=== PATIENT | male | born 1975 | race Caucasian/White ===

== ENCOUNTER 2018-02-24 00:47 | Emergency (ER) | payer SELFPAY ==
[~2018-02-24] VITALS: Ht 175.3 cm; Wt 75.0 kg
[~2018-02-24 00:47] MED LIST: AC325T PO; ALBU17AE23 IH; ALBU17AE3 IH; ALBU8.5HRX IH; ASP81CT PO; BPR150TCR PO; BSP5T PO; CIPR500T4 PO; DOXY100C2 PO; FLT05NA16; GABA300C PO; HYDR-2890 PO; HYDR12.570 PO; HYDR25CA5 PO; HYDR50TA76 PO; Ibuprofen PO; LEVO750T24 PO; METH4TAB PO; NAPR-243 PO; NAPR250T2 PO; OMEG-12 PO; OSLT75C PO; OXYC-188 PO; RABE20TA PO; SULF1TAB38 PO
[2018-02-24] MEDS ORDERED: NS IV 1000 ML 1,000 ML IV SCH (01:18)
--- NOTE | 2018-02-24 01:26 | ED Chest Pain ---
General Stated Complaint: NECK,ARM PAIN Source: patient Exam Limitations: no limitations History of Present Illness Date Seen by Provider: Feb 24, 2018 Time Seen by Provider: 01:14 Initial Comments Patient presents to ER by private conveyance with chief complaint of some left shoulder pain is been intermittent for the past 2 weeks. He does not recall doing any overuse injuries he does work on cars for living. He is right-handed by nature. He is not having any radiation of his pain but he does have numbness and tingling goes down into his fingertips. He says that he does not have a history of trauma or neck injuries or neck pain. He is not having any fevers chills but he does have a productive cough. He does have a history of primary family with early onset coronary disease in their 40s. He denies using any recreational drugs. He says he used to take a lot of pills but he stopped all that years ago and has been for the past few months using a herbal supplement 3- 4 tablets every 4 hours as needed to help with the craving. Called Hieu. Recently he's also been having a lot of nasal congestion and allergy so he's been using an off brand version of nasal Gordo-Synephrine as well as Sudafed and some naiw-buk-snllici nasal decongestants. Allergies and Home Medications Allergies Coded Allergies: No Known Drug Allergies (Unverified , 05/09/10) Home Medications Acetaminophen 325 Mg Tab, 650 MG PO Q4H PRN for FEVER > 100.5 Prescribed by: BIGG RAJAN on 01/31/1453 Ciprofloxacin 500 Mg Tab, 500 MG PO BID Prescribed by: BIGG RAJAN on 01/31/14 0953 [Ibuprofen] 800 MG TAB, 800 MG PO Q8H PRN for FEVER >100.5 Prescribed by: BIGG RAJAN on 01/31/14 0953 Patient Home Medication List Home Medication List Reviewed: Yes Review of Systems Review of Systems Constitutional: No chills, No fever; malaise EENTM: No Blurred Vision, No Double Vision Respiratory: Cough; Denies Shortness of Air Cardiovascular: See HPI; Denies Chest Pain, Denies Edema Gastrointestinal: Denies Abdomen Distended, Denies Abdominal Pain Genitourinary: Denies Burning, Denies Discharge Musculoskeletal: No back pain; joint pain (left shoulder), neck pain Past Ghstfei-Xrspwf-Qcmhvc Hx Patient Social History Alcohol Use: Denies Use Recreational Drug Use: No Drug of Choice: history of opiates Smoking Status: Current Everyday Smoker Type Used: Cigarettes (0.5 ppd) Recent Foreign Travel: No Contact w/Someone Who Travel: No Immunizations Up To Date Date of Influenza Vaccine: Jun 07, 2013 Past Medical History Anxiety Family Medical History Patient reports no known family medical history. Physical Exam Vital Signs Capillary Refill : Height, Weight, BMI Height: 5'9.00" Weight: 165lbs. 5.0oz. 74.205585aw; BMI Method:Stated General Appearance: No Apparent Distress, WD/WN, Anxious HEENT: PERRL/EOMI, Normal ENT Inspection, Pharynx Normal, Moist Mucous Membranes Neck: Full Range of Motion, Normal Inspection, Non Tender, Supple Respiratory: Chest Non Tender, No Accessory Muscle Use, No Respiratory Distress , Rales (few bilateral lower lobes) Cardiovascular: Regular Rate, Rhythm, No Edema, Normal Peripheral Pulses Gastrointestinal: Normal Bowel Sounds, Non Tender, Soft Extremity: Normal Capillary Refill, Normal Inspection, Normal Range of Motion; No Non Tender; No Pedal Edema, Other (tenderness to palpation over the trapezius on the left side especially with passive and active abduction. Neck nontender palpation) Neurologic/Psychiatric: Alert, Oriented x3, No Motor/Sensory Deficits Skin: Normal Color, Warm/Dry Progress/Results/Core Measures Results/Orders Lab Results Laboratory Tests Test 02/24/18 01:38 Range/Units White Blood Count 7.5 4.3-11.0 10^3/uL Red Blood Count 4.03 L 4.35-5.85 10^6/uL Hemoglobin 12.9 L 13.3-17.7 G/DL Hematocrit 37 L 40-54 % Mean Corpuscular Volume 91 80-99 FL Mean Corpuscular Hemoglobin 32 25-34 PG Mean Corpuscular Hemoglobin Concent 35 32-36 G/DL Red Cell Distribution Width 13.0 10.0-14.5 % Platelet Count 434 H 130-400 10^3/uL Mean Platelet Volume 9.2 7.4-10.4 FL Neutrophils (%) (Auto) 54 42-75 % Lymphocytes (%) (Auto) 35 12-44 % Monocytes (%) (Auto) 9 0-12 % Eosinophils (%) (Auto) 2 0-10 % Basophils (%) (Auto) 1 0-10 % Neutrophils # (Auto) 4.0 1.8-7.8 X 10^3 Lymphocytes # (Auto) 2.6 1.0-4.0 X 10^3 Monocytes # (Auto) 0.6 0.0-1.0 X 10^3 Eosinophils # (Auto) 0.2 0.0-0.3 10^3/uL Basophils # (Auto) 0.1 0.0-0.1 10^3/uL Prothrombin Time 12.2 12.2-14.7 SEC INR Comment 0.9 0.8-1.4 Activated Partial Thromboplast Time 35 24-35 SEC Sodium Level 140 135-145 MMOL/L Potassium Level 3.8 3.6-5.0 MMOL/L Chloride Level 106 98-107 MMOL/L Carbon Dioxide Level 23 21-32 MMOL/L Anion Gap 11 5-14 MMOL/L Blood Urea Nitrogen 17 7-18 MG/DL Creatinine 0.87 0.60-1.30 MG/DL Estimat Glomerular Filtration Rate > 60 BUN/Creatinine Ratio 20 Glucose Level 104 70-105 MG/DL Calcium Level 9.5 8.5-10.1 MG/DL Corrected Calcium 9.1 8.5-10.1 MG/DL Magnesium Level 2.2 1.8-2.4 MG/DL Total Bilirubin 0.3 0.1-1.0 MG/DL Aspartate Amino Transf (AST/SGOT) 31 5-34 U/L Alanine Aminotransferase (ALT/SGPT) 41 0-55 U/L Alkaline Phosphatase 71 40-136 U/L Myoglobin 37.8 10.0-92.0 NG/ML Troponin I < 0.30 <0.30 NG/ML Total Protein 7.5 6.4-8.2 GM/DL Albumin 4.5 3.2-4.5 GM/DL My Orders Orders - CRISTY MOSHER Cbc With Automated Diff (02/24/18:18) Magnesium (02/24/18:18) Ekg Tracing (02/24/18:18) Cardiac Profile 1 (02/24/18:18) Comprehensive Metabolic Panel (02/24/18:18) Myoglobin Serum (02/24/18:18) Protime With Inr (02/24/18:18) Partial Thromboplastin Time (02/24/18:18) O2 (02/24/18:18) Monitor-Rhythm Ecg Trace Only (02/24/18:18) Saline Lock/Iv-Start (02/24/18:18) Chest Pa/Lat (2 View) (02/24/18:18) Saline Lock/Iv-Start (02/24/18:18) Ns Iv 1000 Ml (Sodium Chloride 0.9%) (02/24/18:18) Drug Screen Stat (Urine) (02/24/18:18) Progress Progress Note #1: Time: :26 Progress Note ED ACS 17 points. Low risk by the EDACS Score. If the patient also has: (1) EKG without new ischemic changes and (2) negative initial and 2-hour troponins, then this patient is safe for discharge to early outpatient follow-up investigation (or proceed to earlier inpatient testing). If EKG with ischemic changes or positive troponin, they are not low risk and require normal risk stratification. Is pains been going on for the last 2 weeks if it was cardiac in nature we'll see if the troponin. EKG shows sinus tachycardia as well as telemetry. Could be explained by his recent use of Sudafed, phenylephrine, so Gordo-Synephrine etc. Were going to give him a liter fluids since she does appear dry all he waits for some basic labs to include troponin and myoglobin. We'll get a chest x-ray as well since he's having a productive cough. Tachycardia but no acute respiratory distress. He does have some mild basilar crackles bilateral. Progress Note #2: Time: 03:05 Progress Note The patient's feeling better. He has declined to provide a urine. There is no elevation in his troponin or changes in EKG and his heart rates down in the 80s now after some IV fluids. I feel that this shoulder pain is most likely from either a pinched nerve in the neck or some musculoskeletal reasonable to put him on NSAIDs. He has follow-up appointment with his primary care doctor we've also encouraged him to slowly wean off of the supplement and follow-up with the outpatient addiction treatment Center at the [facility] for management. Initial ECG Impression Date: Feb 24, 2018 Initial ECG Impression Time: 01:06 Initial ECG Rate: 114 Initial ECG Rhythm: S.Tach Initial ECG Intervals: Normal Initial ECG Impression: Nonspecific Changes Initial ECG Comparisson: No Previous ECG Available Comment Sinus tachycardia without ST elevation or depression. Diagnostic Imaging Diagonstic Imaging: Xray Plain Films/CT/US/NM/MRI: chest (2v) Reviewed: Reviewed by Me Departure Impression Primary Impression: Cervical radiculopathy Additional Impressions: Shoulder pain, left Qualified Codes: M25.512 - Pain in left shoulder Medication side effect Disposition: HOME, SELF-CARE Condition: Improved Departure-Patient Inst. Decision time for Depature: 03:08 Referrals: [facility] (PCP/Family) Primary Care Physician Patient Instructions: Shoulder Pain (DC) Add. Discharge Instructions: Ice for 20 minutes every 4 hours while awake on your left shoulder and neck. You can use heat in between then or icy hot. Use Tylenol 1000 mg as needed every 8 hours for pain. On a schedule start taking 800 mg ibuprofen 3 times a day for the next 2 weeks. For 2 weeks do not lift more than 20 pounds with your left shoulder. Follow-up with primary care if you're not seeing some improvement in the next 2 weeks. Scripts Ibuprofen (Ibuprofen) 800 Mg Tablet 800 MG PO Q8H PRN for PAIN for 14 Days, #42 TAB 0 Refills Prov: CRISTY MOSHER 02/24/18 Work/School Note: Work Release Form Date Seen in the Emergency Department: Feb 24, 2018 Return to Work: Feb 24, 2018 Restrictions: Need Release from Doctor Other Restrictions Listed Below: No lift more than 20# left arm until . Copy Copies To 1: NATHALIA HALE TITUS J Feb 24, 2018 01:26
[2018-02-24 01:46] LABS: BASOPHILS # (AUTO) 0.1 10^3/uL (0.0-0.1); BASOPHILS % (AUTO) 1 % (0-10); EOSINOPHILS # (AUTO) 0.2 10^3/uL (0.0-0.3); EOSINOPHILS % (AUTO) 2 % (0-10); HEMATOCRIT 37 % (40-54); HEMOGLOBIN 12.9 G/DL (13.3-17.7); LYMPHOCYTES # (AUTO) 2.6 X 10^3 (1.0-4.0); LYMPHOCYTES % (AUTO) 35 % (12-44); MEAN CORPUSCULAR HEMOGLOBIN 32 PG (25-34); MEAN CORPUSCULAR HGB CONC 35 G/DL (32-36); MEAN CORPUSCULAR VOLUME 91 FL (80-99); MEAN PLATELET VOLUME 9.2 FL (7.4-10.4); MONOCYTES # (AUTO) 0.6 X 10^3 (0.0-1.0); MONOCYTES % (AUTO) 9 % (0-12); NEUTROPHILS % (AUTO) 54 % (42-75); PLATELET COUNT 434 10^3/uL (130-400); RED BLOOD COUNT 4.03 10^6/uL (4.35-5.85); WHITE BLOOD COUNT 7.5 10^3/uL (4.3-11.0)
[2018-02-24 01:57] LABS: INR 0.9 (0.8-1.4); PROTHROMBIN TIME PATIENT 12.2 SEC (12.2-14.7)
[2018-02-24 02:04] LABS: ALANINE AMINOTRANSFERASE 41 U/L (0-55); ALBUMIN 4.5 GM/DL (3.2-4.5); ALKALINE PHOSPHATASE 71 U/L (40-136); BILIRUBIN,TOTAL 0.3 MG/DL (0.1-1.0); BUN/CREATININE RATIO 20; CALCIUM 9.5 MG/DL (8.5-10.1); CARBON DIOXIDE 23 MMOL/L (21-32); CHLORIDE 106 MMOL/L (98-107); CREATININE SERUM 0.87 MG/DL (0.60-1.30); GFR ESTIMATED > 60; GLUCOSE 104 MG/DL (70-105); MAGNESIUM 2.2 MG/DL (1.8-2.4); POTASSIUM 3.8 MMOL/L (3.6-5.0); SODIUM 140 MMOL/L (135-145); TOTAL PROTEIN 7.5 GM/DL (6.4-8.2)
[2018-02-24 02:10] LABS: MYOGLOBIN SERUM 37.8 NG/ML (10.0-92.0)
[2018-02-24] MEDS ORDERED: IBUP-1780 PO (03:11)
[2018-02-24 03:26] VITALS: BP 132/97
--- NOTE | 2018-02-24 06:31 | Diagnostic Imaging Report ---
CHEST PA/LAT (2 VIEW) Indication: Cough and congestion. Comparison: 01/28/2014 Findings: No focal pneumonic consolidation, pleural effusion or pneumothorax. Normal heart size and pulmonary vasculature. Impression: No acute cardiopulmonary process. Dictated by: Dictated on workstation # [id number]
== END 2018-02-24 03:26 | disposition home or self-care (01) ==
LOC: EDUNIT# 00:47 → ER 00:49
DX: M54.12 Radiculopathy, cervical region (principal); M25.512 Pain in left shoulder; T88.7XXA Unspecified adverse effect of drug or medicament, initial encounter; F41.9 Anxiety disorder, unspecified; F17.210 Nicotine dependence, cigarettes, uncomplicated; Z82.49 Family history of ischemic heart disease and other diseases of the circulatory system
CPT/HCPCS: 36415; 71046; 80053; 83735; 83874; 84484; 85025; 85610; 85730; 93005; 93041; 96360

== ENCOUNTER 2019-10-05 13:42 | Emergency (ER) | payer SELFPAY ==
[~2019-10-05] VITALS: Ht 177 cm; Wt 74.1 kg
[~2019-10-05 13:42] MED LIST changes: +IBUP-1780 PO
[2019-10-05 13:51] VITALS: BP 107/67
== END 2019-10-05 15:24 | disposition left against medical advice (07) ==
LOC: EDUNIT# 13:42 → ER 13:44
DX: R51 Headache (principal); R11.2 Nausea with vomiting, unspecified; R19.7 Diarrhea, unspecified; R05 Cough

== ENCOUNTER 2019-12-01 22:38 | Emergency (ER) | payer SELFPAY ==
[~2019-12-01] VITALS: Ht 170 cm; Wt 85.0 kg
[2019-12-01 23:17] LABS: BASOPHILS # (AUTO) 0.1 10^3/uL (0.0-0.1); BASOPHILS % (AUTO) 1 % (0-10); EOSINOPHILS # (AUTO) 0.2 10^3/uL (0.0-0.3); EOSINOPHILS % (AUTO) 3 % (0-10); HEMATOCRIT 39 % (40-54); HEMOGLOBIN 13.5 G/DL (13.3-17.7); LYMPHOCYTES # (AUTO) 3.1 X 10^3 (1.0-4.0); LYMPHOCYTES % (AUTO) 33 % (12-44); MEAN CORPUSCULAR HEMOGLOBIN 31 PG (25-34); MEAN CORPUSCULAR HGB CONC 35 G/DL (32-36); MEAN CORPUSCULAR VOLUME 91 FL (80-99); MEAN PLATELET VOLUME 10.3 FL (7.4-10.4); MONOCYTES # (AUTO) 0.4 X 10^3 (0.0-1.0); MONOCYTES % (AUTO) 5 % (0-12); NEUTROPHILS # (AUTO) 5.6 X 10^3 (1.8-7.8); NEUTROPHILS % (AUTO) 59 % (42-75); PLATELET COUNT 350 10^3/uL (130-400); RED CELL DISTRIBUTION WIDTH 12.8 % (10.0-14.5); WHITE BLOOD COUNT 9.4 10^3/uL (4.3-11.0)
[2019-12-01] MEDS ORDERED: LACTATED RINGERS 1,000 ML IV ONE (23:33)
[2019-12-01 23:45] LABS: ALANINE AMINOTRANSFERASE 79 U/L (0-55); ALBUMIN 4.4 GM/DL (3.2-4.5); ALKALINE PHOSPHATASE 68 U/L (40-136); BILIRUBIN,TOTAL 0.2 MG/DL (0.1-1.0); BUN/CREATININE RATIO 16; CALCIUM 9.6 MG/DL (8.5-10.1); CARBON DIOXIDE 19 MMOL/L (21-32); CHLORIDE 103 MMOL/L (98-107); CREATININE SERUM 1.01 MG/DL (0.60-1.30); GFR ESTIMATED > 60; GLUCOSE 114 MG/DL (70-105); MAGNESIUM 1.9 MG/DL (1.6-2.4); POTASSIUM 4.2 MMOL/L (3.6-5.0); SODIUM 140 MMOL/L (135-145)
[2019-12-02] MEDS ORDERED: LACTATED RINGERS 1,000 ML IV ONE (00:16)
--- NOTE | 2019-12-02 00:43 | ED General ---
General Chief Complaint: Substance Abuse Stated Complaint: SYNCOPE Nursing Triage Note: pt found on bathroom floor unresponsive, pt admits to taking an unkown amount of oxycodone that is not prescribed to him. daughter started CPR but pt did have a pulse Nursing Sepsis Screen: No Definite Risk Source of Information: Patient Exam Limitations: No Limitations History of Present Illness Date Seen by Provider: Dec 02, 2019 Time Seen by Provider: 00:05 Initial Comments Here by EMS after being found unresponsive and CPR initiated at the home. He a pparently woke up and was fighting them off when they were trying to do CPR. Patient admits to having a toothache and taking an oxycodone or hydrocodone or OxyContin of some dose but he is unsure. He is very sleepy. He is arousable. Denies chest pain or pain anywhere other than the tooth on the right lower side and a mild headache. States that he was weed eating all day long and thinks he is dehydrated. Denies nausea, vomiting or diarrhea. Denies muscle aches or pain. Denies any recent contact with COVID-19, shortness of breath, fever or upper respiratory symptoms. Timing/Duration: 1-3 Hours Severity: Moderate Associated Systoms: No Chest Pain, No Cough, No Fever/Chills, No Nausea/Vomiting, No Weakness Allergies and Home Medications Allergies Coded Allergies: No Known Drug Allergies (Unverified , 05/09/10) Home Medications Acetaminophen 325 Mg Tab, 650 MG PO Q4H PRN for FEVER > 100.5 Prescribed by: BIGG RAJAN on 01/31/14952 Ciprofloxacin 500 Mg Tab, 500 MG PO BID Prescribed by: BIGG RAJAN on 01/31/14952 Ibuprofen 800 Mg Tablet, 800 MG PO Q8H PRN for PAIN Prescribed by: CRISTY MOSHER on 02/24/18 0311 [Ibuprofen] 800 MG TAB, 800 MG PO Q8H PRN for FEVER >100.5 Prescribed by: BIGG RAJAN on 01/31/14952 Patient Home Medication List Home Medication List Reviewed: Yes Review of Systems Review of Systems Constitutional: see HPI; No chills, No fever EENTM: dental problems, mouth pain; No nose congestion, No throat pain Respiratory: No cough, No short of breath Cardiovascular: No see HPI, No chest pain, No edema Gastrointestinal: No diarrhea, No nausea, No vomiting Genitourinary: no symptoms reported Musculoskeletal: no symptoms reported Skin: no symptoms reported Psychiatric/Neurological: See HPI All Other Systems Reviewed Negative Unless Noted: Yes Past Kyerlxy-Agpgrc-Lzlxhh Hx Past Med/Social Hx: Reviewed Nursing Past Med/Soc Hx Patient Social History Alcohol Use: Occasionally Uses Recreational Drug Use: Yes Drug of Choice: Meth, oxycodone Smoking Status: Current Everyday Smoker Type Used: Cigarettes 2nd Hand Smoke Exposure: Yes Recent Foreign Travel: No Contact w/Someone Who Travel: No Recent Infectious Disease Expo: No Recent Hopitalizations: No Physical Abuse: No Sexual Abuse: No Mistreated: No Fear: No Immunizations Up To Date Tetanus Booster (TDap): Unknown PED Vaccines UTD: Yes Date of Influenza Vaccine: Jun 07, 2013 Seasonal Allergies Seasonal Allergies: No Past Medical History Surgeries: Yes Vasectomy Respiratory: No Cardiac: No Neurological: No Genitourinary: No Gastrointestinal: No Musculoskeletal: No Endocrine: No HEENT: No Cancer: No Psychosocial: No Anxiety Integumentary: No Blood Disorders: No Family Medical History Reviewed Nursing Family Hx Patient reports no known family medical history. No Pertinent Family Hx Physical Exam Vital Signs Vital Signs - First Documented 12/01/19 23:00 Temp 36.6 Pulse 112 Resp 18 B/P (MAP) 122/85 (97) Pulse Ox 92 O2 Delivery Room Air Capillary Refill : Less Than 3 Seconds Height, Weight, BMI Height: 5'9.00" Weight: 165lbs. 5.0oz. 74.022711qg; 29.00 BMI Method:Stated General Appearance: No Apparent Distress, WD/WN HEENT: PERRL/EOMI, Pharynx Normal Neck: Non Tender, Supple Respiratory: Lungs Clear, Normal Breath Sounds Cardiovascular: Regular Rate, Rhythm, No Murmur Gastrointestinal: Non Tender, Soft Back: Normal Inspection, No CVA Tenderness, No Vertebral Tenderness Extremity: Normal Range of Motion, Non Tender Neurologic/Psychiatric: Other (awakes with verbal. Seems oriented to person and place but disoriented to situation and seems sleepy.) Skin: Normal Color, Warm/Dry Progress/Results/Core Measures Suspected Sepsis Recent Fever Within 48 Hours: No Infection Criteria Present: None New/Unexplained Altered Menta: No Sepsis Screen: No Definite Risk SIRS Temperature: Pulse: 112 Respiratory Rate: 18 Laboratory Tests 12/01/19 22:56: White Blood Count 9.4 Blood Pressure 122 /85 Mean: 97 Laboratory Tests 12/01/19 22:56: Creatinine 1.01, Platelet Count 350, Total Bilirubin 0.2 Results/Orders Lab Results Laboratory Tests Test 12/01/19 00:39 12/01/19 22:56 12/02/19 01:00 Range/Units Urine Color YELLOW Urine Clarity CLEAR Urine pH 5.0 5-9 Urine Specific [place] >=1.030 1.016-1.022 Urine Protein TRACE H NEGATIVE Urine Glucose (UA) NEGATIVE NEGATIVE Urine Ketones NEGATIVE NEGATIVE Urine Nitrite NEGATIVE NEGATIVE Urine Bilirubin NEGATIVE NEGATIVE Urine Urobilinogen 0.2 < = 1.0 MG/DL Urine Leukocyte Esterase NEGATIVE NEGATIVE Urine RBC (Auto) NEGATIVE NEGATIVE Urine RBC NONE /HPF Urine WBC NONE /HPF Urine Squamous Epithelial Cells RARE /HPF Urine Crystals NONE /LPF Urine Bacteria NEGATIVE /HPF Urine Casts PRESENT /LPF Urine Hyaline Casts 2-5 H /LPF Urine Mucus SMALL H /LPF Urine Culture Indicated NO Urine Opiates Screen POSITIVE H NEGATIVE Urine Oxycodone Screen POSITIVE H NEGATIVE Urine Methadone Screen NEGATIVE NEGATIVE Urine Propoxyphene Screen NEGATIVE NEGATIVE Urine Barbiturates Screen NEGATIVE NEGATIVE Ur Tricyclic Antidepressants Screen NEGATIVE NEGATIVE Urine Phencyclidine Screen NEGATIVE NEGATIVE Urine Amphetamines Screen POSITIVE H NEGATIVE Urine Methamphetamines Screen POSITIVE H NEGATIVE Urine Benzodiazepines Screen NEGATIVE NEGATIVE Urine Cocaine Screen NEGATIVE NEGATIVE Urine Cannabinoids Screen NEGATIVE NEGATIVE White Blood Count 9.4 4.3-11.0 10^3/uL Red Blood Count 4.31 L 4.35-5.85 10^6/uL Hemoglobin 13.5 13.3-17.7 G/DL Hematocrit 39 L 40-54 % Mean Corpuscular Volume 91 80-99 FL Mean Corpuscular Hemoglobin 31 25-34 PG Mean Corpuscular Hemoglobin Concent 35 32-36 G/DL Red Cell Distribution Width 12.8 10.0-14.5 % Platelet Count 350 130-400 10^3/uL Mean Platelet Volume 10.3 7.4-10.4 FL Neutrophils (%) (Auto) 59 42-75 % Lymphocytes (%) (Auto) 33 12-44 % Monocytes (%) (Auto) 5 0-12 % Eosinophils (%) (Auto) 3 0-10 % Basophils (%) (Auto) 1 0-10 % Neutrophils # (Auto) 5.6 1.8-7.8 X 10^3 Lymphocytes # (Auto) 3.1 1.0-4.0 X 10^3 Monocytes # (Auto) 0.4 0.0-1.0 X 10^3 Eosinophils # (Auto) 0.2 0.0-0.3 10^3/uL Basophils # (Auto) 0.1 0.0-0.1 10^3/uL D-Dimer 2.62 H 0.00-0.49 UG/ML Sodium Level 140 135-145 MMOL/L Potassium Level 4.2 3.6-5.0 MMOL/L Chloride Level 103 98-107 MMOL/L Carbon Dioxide Level 19 L 21-32 MMOL/L Anion Gap 18 H 5-14 MMOL/L Blood Urea Nitrogen 16 7-18 MG/DL Creatinine 1.01 0.60-1.30 MG/DL Estimat Glomerular Filtration Rate > 60 BUN/Creatinine Ratio 16 Glucose Level 114 H 70-105 MG/DL Calcium Level 9.6 8.5-10.1 MG/DL Corrected Calcium 9.3 8.5-10.1 MG/DL Magnesium Level 1.9 1.6-2.4 MG/DL Total Bilirubin 0.2 0.1-1.0 MG/DL Aspartate Amino Transf (AST/SGOT) 56 H 5-34 U/L Alanine Aminotransferase (ALT/SGPT) 79 H 0-55 U/L Alkaline Phosphatase 68 40-136 U/L Troponin I < 0.028 <0.028 NG/ML Total Protein 8.0 6.4-8.2 GM/DL Albumin 4.4 3.2-4.5 GM/DL Blood Gas Puncture Site RT RADIAL Blood Gas Patient Temperature 36.6 Arterial Blood pH 7.39 7.37-7.43 Arterial Blood Partial Pressure CO2 46 H 35-45 MMHG Arterial Blood Partial Pressure O2 74 L 79-93 MMHG Arterial Blood HCO3 27 23-27 MMOL/L Arterial Blood Total CO2 28.8 21.0-31.0 MMOL/L Arterial Blood Oxygen Saturation 95 94-100 % Arterial Blood Base Excess 2.8 H -2.5-2.5 MMOL/L Cesar Test YES-POS Blood Gas Ventilator Setting NO Blood Gas Inspired Oxygen ROOM AIR My Orders Orders - YUNIOR ARCHIBALD MD Ed Iv/Invasive Line Start (12/01/19 23:33) Lactated Ringers (Lr 1000 Ml Iv Solution (12/01/19 23:33) Ct Angio Chest W (12/02/19 00:16) Lactated Ringers (Lr 1000 Ml Iv Solution (12/02/19 00:16) Hs C Reactive Protein (12/02/19 00:33) Troponin I (12/02/19 00:33) Iohexol Injection (Omnipaque 350 Mg/Ml 1 (12/02/19 01:15) Received Contrast (Hold Metformin- Contr (12/02/19 01:15) Ns (Ivpb) (Sodium Chloride 0.9% Ivpb Bag (12/02/19 01:15) Arterial Blood Gas (12/02/19 01:00) Medications Given in ED Current Medications Medications Dose Ordered Sig/[place] Route Start Time Stop Time Status Last Admin Dose Admin Iohexol 100 ml ONCE ONCE IV 12/02/19 01:15 12/02/19 01:16 DC 12/02/19 01:10 90 ML Lactated Ringer's 1,000 ml @ 0 mls/hr Q0M ONCE IV 12/01/19 23:33 12/01/19 23:34 DC 12/02/19 01:52 0 MLS/HR Sodium Chloride 100 ml ONCE ONCE IV 12/02/19 01:15 12/02/19 01:16 DC 12/02/19 01:10 80 ML Vital Signs/I&O 12/01/19 23:00 Temp 36.6 Pulse 112 Resp 18 B/P (MAP) 122/85 (97) Pulse Ox 92 O2 Delivery Room Air Capillary Refill : Less Than 3 Seconds Blood Pressure Mean: 97 Progress Note : Progress Note Seen and evaluated. IV, labs, EKG and LR 1 L bolus ordered. Patient was a very difficult IV start and does have history of IV drug use. I was able to start a 20-gauge to the left antecubital space area. Another IV was able to start the right arm is slightly by nursing. Patient will get 2 L of LR IV. 0030: CT angiogram of the chest ordered due to elevated d-dimer and this will also help evaluated after bystander CPR done and villeda to evaluate chest structure. ABG ordered. Monitor patient. 0232: Overall doing much better. Awake and alert and toaking without difficulty. I did expres my concern related to drugs and use/abuse. He reports he is going to [facility] tomorrow to talk with them. No acute findings other luna and is pain free. Discharged home with return precautions. Patient verbalized understanding of instructions and agreement with plan. Diagnostic Imaging Diagonstic Imaging: CT Plain Films/CT/US/NM/MRI: chest Comments No acute abnormality within the chest. Reviewed: Reviewed by Me Departure Impression Primary Impression: Drug overdose Qualified Codes: T50.901A - Poisoning by unspecified drugs, medicaments and biological substances, accidental (unintentional), initial encounter Disposition: HOME, SELF-CARE Condition: Stable Departure-Patient Inst. Decision time for Depature: 02:36 Referrals: [facility] (PCP/Family) Primary Care Physician Patient Instructions: ALCOHOL AND SUBSTANCE ABUSE Add. Discharge Instructions: All discharge instructions reviewed with patient and/or family. Voiced understanding. Stop using drugs. Drink plenty of fluids and eat a normal diet. Follow up with [facility] as you discussed. Return for worse pain, fever, vomiting, breathing problems or other concerns as needed. YUNIOR ARCHIBALD MD Dec 02, 2019 00:42
[2019-12-02 00:46] LABS: BILIRUBIN,URINE NEGATIVE (NEGATIVE); CLARITY,URINE CLEAR; COLOR,URINE YELLOW; GLUCOSE, URINE (UA) NEGATIVE (NEGATIVE); KETONES,URINE NEGATIVE (NEGATIVE); LEUKOCYTE ESTERASE ,URINE NEGATIVE (NEGATIVE); NITRITE,URINE NEGATIVE (NEGATIVE); PROTEIN,URINE TRACE (NEGATIVE)
[2019-12-02 00:54] LABS: BACTERIA,URINE NEGATIVE /HPF; SQUAMOUS EPITHELIAL CELL,UR RARE /HPF
[2019-12-02 01:13] LABS: AMPHETAMINE SCREEN, URINE POSITIVE (NEGATIVE); BARBITURATE SCREEN URINE NEGATIVE (NEGATIVE); BENZODIAZEPINES SCREEN URINE NEGATIVE (NEGATIVE); CANNABINOID SCREEN, URINE NEGATIVE (NEGATIVE); COCAINE SCREEN URINE NEGATIVE (NEGATIVE); METHADONE STAT NEGATIVE (NEGATIVE); METHAMPHETAMINE SCREEN URINE S POSITIVE (NEGATIVE); OPIATE SCREEN URINE POSITIVE (NEGATIVE); OXYCODONE STAT POSITIVE (NEGATIVE); PROPOXYPHENE STAT NEGATIVE (NEGATIVE); TRICYCLIC ANTIDEPRESSANTS SCRE NEGATIVE (NEGATIVE)
[2019-12-02] MEDS ORDERED: IOHEXOL 350 MG/ML 100 ML (OMNIPAQUE 350) VIAL IV ONE (01:15)
[2019-12-02] MEDS ORDERED: HOLD METFORMIN - RECEIVED CONTRAST 20 ML VIAL IV SCH (01:15)
[2019-12-02] MEDS ORDERED: NS 100 ML (IVPB) BAG IV ONE (01:15)
[2019-12-02 01:46] LABS: ABG BASE EXCESS 2.8 MMOL/L (-2.5-2.5); ABG OXYGEN SATURATION 95 % (94-100); ABG PCO2 46 MMHG (35-45); ABG PH 7.39 (7.37-7.43); ABG PO2 74 MMHG (79-93); ABG TCO2 28.8 MMOL/L (21.0-31.0); ALLENS TEST YES-POS; INSPIRED O2 ROOM AIR; PATIENT TEMP 36.6; VENTILATOR NO
[2019-12-02 03:14] VITALS: BP 149/95
--- NOTE | 2019-12-02 08:37 | Diagnostic Imaging Report ---
PROCEDURE: CT angiography of the chest with contrast. TECHNIQUE: Multiple contiguous axial images were obtained through the chest after uneventful bolus administration of intravenous contrast. 3D reconstructed CTA MIP acquisitions were also performed. Auto Exposure Controls were utilized during the CT exam to meet ALARA standards for radiation dose reduction. INDICATION: Found down. COMPARISON: None FINDINGS: There is no acute embolus to the 1st subsegmental division of the pulmonary arteries. Heart size is within normal limits. Thoracic aorta is normal in course and caliber as well. There is no evidence of dissection, aneurysm, nor focal significant stenosis. There is no large pericardial effusion. No pathologically enlarged or morphologically abnormal adenopathy is identified within the mediastinum, aftab, nor axilla. There is no mediastinal hemorrhage. Evaluation of lung villeda demonstrates no focal consolidation, large effusion, nor pneumothorax. There is minimal dependent atelectasis. No suspicious pulmonary nodules or masses are seen. Osseous structures show no lytic or blastic bony lesions. No other acute osseous abnormalities are identified. Included portions of the upper abdomen show benign-appearing right renal cyst. IMPRESSION: 1. No acute pulmonary embolus to the 1st subsegmental division of the pulmonary arteries. 2. No other acute cardiopulmonary process. Dictated by: Dictated on workstation # [id number]
== END 2019-12-02 02:37 | disposition home or self-care (01) ==
LOC: EDUNIT# 22:38 → ER 22:39
DX: T40.2X2A Poisoning by other opioids, intentional self-harm, initial encounter (principal); F17.210 Nicotine dependence, cigarettes, uncomplicated
CPT/HCPCS: 36415; 71275; 80053; 80306; 81000; 82805; 83735; 84484; 85025; 85379; 93005

== ENCOUNTER 2020-01-15 10:36 | Emergency (ER) | payer SELFPAY ==
[~2020-01-15] VITALS: Ht 178 cm; Wt 82.0 kg
[2020-01-15] MEDS ORDERED: HYDROcodone/APAP 10 MG/325 MG (LORTAB) TAB PO STA (11:03)
--- NOTE | 2020-01-15 11:13 | ED Integumentary General ---
General Chief Complaint: Skin/Wound Problems Stated Complaint: RASH ON ABD - COUGH/ SOA/ FEVER Nursing Triage Note: Patient reports rash to R side wrapping from spine to abdomen. denies n/v/d Source: patient Exam Limitations: no limitations History of Present Illness Date Seen by Provider: Jan 15, 2020 Time Seen by Provider: 11:00 Initial Comments This is a healthy appearing 44 yo male who presented for abdominal pain and rash that began approximately 2 days ago. She had sharp burning pain in his side and abdomen followed by a vesicular rash. . Denies fever, chills, cough, headache, shortness of breath, chest pain, nausea, vomiting, diarrhea. States pain is localized to rash and describes as sharp and burning in nature, rates 10 out of 10 at its worst. He has not taken anything for pain prior to arrival. Timing/Duration: other (two days ago ) Severity: moderate Location: torso Possible Cause: exposure to illness Associated Symptoms: blisters, rash (burning/sharp ) Allergies and Home Medications Allergies Coded Allergies: No Known Drug Allergies (Unverified , 05/09/10) Home Medications Acetaminophen 325 Mg Tab, 650 MG PO Q4H PRN for FEVER > 100.5 Prescribed by: BIGG RAJAN on 01/31/1453 Acyclovir 800 Mg Tablet, 800 MG PO 5XD Prescribed by: MARIELLA CARR on 01/15/20 112 Ciprofloxacin 500 Mg Tab, 500 MG PO BID Prescribed by: BIGG RAJAN on 01/31/14 0953 Hydrocodone/Acetaminophen 1 Each Tablet, 1 EACH PO Q4H PRN for PAIN-BREAKTHROUGH Prescribed by: MARIELLA CARR on 01/15/20 112 Ibuprofen 800 Mg Tablet, 800 MG PO Q8H PRN for PAIN Prescribed by: CRISTY MOSHER on 02/24/18 0311 [Ibuprofen] 800 MG TAB, 800 MG PO Q8H PRN for FEVER >100.5 Prescribed by: BIGG RAJAN on 01/31/14 0953 Patient Home Medication List Home Medication List Reviewed: Yes Review of Systems Review of Systems Constitutional: no symptoms reported EENTM: no symptoms reported Respiratory: no symptoms reported Cardiovascular: no symptoms reported Gastrointestinal: see HPI Genitourinary: no symptoms reported Musculoskeletal: no symptoms reported Skin: see HPI Psychiatric/Neurological: No Symptoms Reported Endocrine: No Symptoms Reported Hematologic/Lymphatic: No Symptoms Reported Past Pamtpkh-Qphvmy-Mjtktf Hx Patient Social History Alcohol Use: Occasionally Uses Recreational Drug Use: No (SMOKES 1 PPD, USES ALCOHOL 3-4 X PER WEEKK) 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, oxycodone Type Used: Cigarettes 2nd Hand Smoke Exposure: Yes Recent Foreign Travel: No Contact w/Someone Who Travel: No Recent Infectious Disease Expo: No Recent Hopitalizations: No Immunizations Up To Date Tetanus Booster (TDap): Unknown PED Vaccines UTD: Yes Date of Influenza Vaccine: Jun 07, 2013 Seasonal Allergies Seasonal Allergies: No Past Medical History Surgeries: Yes Vasectomy Respiratory: No Cardiac: No Neurological: No Genitourinary: No Gastrointestinal: No Musculoskeletal: No Endocrine: No HEENT: No Cancer: No Psychosocial: No Anxiety Integumentary: No Blood Disorders: No Family Medical History Patient reports no known family medical history. No Pertinent Family Hx Physical Exam Vital Signs Vital Signs - First Documented 01/15/20 10:57 Temp 37.0 Pulse 90 Resp 18 B/P (MAP) 127/88 (101) Pulse Ox 100 Capillary Refill : Less Than 3 Seconds General Appearance: WD/WN, no apparent distress HEENT: PERRL/EOMI, normal ENT inspection Neck: non-tender, full range of motion, normal inspection Cardiovascular: regular rate, rhythm, no murmur Respiratory: chest non-tender, lungs clear, normal breath sounds, no respirato ry distress Gastrointestinal: normal bowel sounds, soft; No distended; guarding; No rebound Back: other (see skin assessment ) Extremities: normal range of motion, non-tender, normal capillary refill Neurologic/Psychiatric: no motor/sensory deficits, alert, normal mood/affect, oriented x 3 Skin: other (erythema vesicular rash on right side of back and trunk, does not cross midline) Skin Problem Location: torso Skin Problem Character: erythema, rash, tenderness, vesicular, other (Does not cross midline ) Lymphatic: no adenopathy Progress/Results/Core Measures Results/Orders My Orders Orders - MARIELLA CARR MATERIAL ANALYST Hydrocodone/Apap 10/325 Tablet (Lortab 1 (01/15/20 11:03) Acyclovir Capsule/Tablet (Zovirax Caps (01/15/20 11:15) Lidocaine 2% Viscous 15 Ml (Xylocaine Vi (01/15/20 11:15) Medications Given in ED Current Medications Medications Dose Ordered Sig/[place] Route Start Time Stop Time Status Last Admin Dose Admin Acyclovir 800 mg ONCE ONCE PO 01/15/20 11:15 01/15/20 11:16 DC 01/15/20 11:24 800 MG Lidocaine HCl 10 ml ONCE ONCE MM 01/15/20 11:15 01/15/20 11:16 DC 01/15/20 11:24 10 ML Vital Signs/I&O 01/15/20 01/15/20 10:57 11:30 Temp 37.0 37.0 Pulse 90 90 Resp 18 18 B/P (MAP) 127/88 (101) 127/88 (101) Pulse Ox 100 100 Blood Pressure Mean: 101 Progress Progress Note : Progress Note Vesicular rash is consistent with shingles as it does not cross the midline. Applied topical lidocaine, given Lortab 10/325 mg by mouth, and first dose of acyclovir in ED. Departure Impression Primary Impression: Shingles Disposition: HOME, SELF-CARE Condition: Stable/Unchanged Departure-Patient Inst. Decision time for Depature: 11:15 Referrals: [facility] [place] Primary Care Physician Patient Instructions: Shingles (DC) Add. Discharge Instructions: Plan: 1. Keep rash clean and dry. Cover with bandage or clothing. Do not use bandages that stick to your skin. 2. The rash is contagious and spread by direct contact from the fluid in the blisters. 3. Take Lortab 5/235mg by mouth every 4 hours as needed for pain. 4. Take Acyclovir 800mg by mouth 5x a day for the next 10 days. 5. Follow up with your primary care provider next week. 6. Return for any new or concerning symptoms. All discharge instructions reviewed with patient and/or family. Voiced understanding. Scripts Hydrocodone/Acetaminophen (Hydrocodone-Acetamin 5-325 mg) 1 Each Tablet 1 EACH PO Q4H PRN for PAIN-BREAKTHROUGH, #30 TAB 0 Refills Prov: MARIELLA CARR MATERIAL ANALYST 01/15/20 Acyclovir (Acyclovir) 800 Mg Tablet 800 MG PO 5XD for 10 Days, #50 TAB 0 Refills Prov: MARIELLA CARR MATERIAL ANALYST 01/15/20 Work/School Note: Family Work Note MARIELLA CARR MATERIAL ANALYST Jan 15, 2020 11:13
[2020-01-15] MEDS ORDERED: LIDOCAINE 2% VISCOUS 15 ML UDC MM ONE (11:15)
[2020-01-15] MEDS ORDERED: ACYCLOVIR 400 MG TABLET (ZOVIRAX) PO ONE (11:15)
[2020-01-15] MEDS ORDERED: ACYC800T PO (11:26)
[2020-01-15] MEDS ORDERED: ACHD5005 PO (11:26)
[2020-01-15 11:30] VITALS: BP 127/88
== END 2020-01-15 11:31 | disposition home or self-care (01) ==
LOC: EDUNIT# 10:36 → ER 10:38
DX: B02.9 Zoster without complications (principal); Z77.22 Contact with and (suspected) exposure to environmental tobacco smoke (acute) (chronic)
CPT/HCPCS: 99283

== ENCOUNTER 2020-11-07 21:07 | Emergency (ER) | payer SELFPAY ==
[~2020-11-07 21:07] MED LIST changes: +ACHD5005 PO; +ACYC-112 PO
== END 2020-11-07 21:18 | disposition left against medical advice (07) ==
LOC: EDUNIT# 21:07 → ER 21:08
DX: R05 Cough (principal); R06.02 Shortness of breath

== ENCOUNTER 2021-01-08 19:42 | Emergency (ER) | payer SELFPAY ==
--- NOTE | 2021-01-08 20:43 | ED Upper Extremity ---
General Chief Complaint: Upper Extremity Stated Complaint: R HAND SWELLING / POSSIBLE STING Source: patient Exam Limitations: no limitations History of Present Illness Date Seen by Provider: Jan 08, 2021 Time Seen by Provider: 20:32 Allergies and Home Medications Allergies Coded Allergies: No Known Drug Allergies (Unverified , 05/09/10) Patient Home Medication List Acetaminophen (Tylenol Tablet) 325 Mg Tab, 650 MG PO Q4H PRN for FEVER > 100.5 Prescribed by: BIGG RAJAN on 01/31/14 0953 Acyclovir (Acyclovir) 800 Mg Tablet, 800 MG PO 5XD Prescribed by: MARIELLA CARR on 01/15/20 1126 Ciprofloxacin (Cipro (Non-Formulary)) 500 Mg Tab, 500 MG PO BID Prescribed by: BIGG RAJAN on 01/31/14 0953 Hydrocodone/Acetaminophen (Hydrocodone-Acetamin 5-325 mg) 1 Each Tablet, 1 EACH PO Q4H PRN for PAIN-BREAKTHROUGH Prescribed by: MARIELLA CARR on 01/15/20 1126 Ibuprofen (Ibuprofen) 800 Mg Tablet, 800 MG PO Q8H PRN for PAIN Prescribed by: CRISTY MOSHER on 02/24/18 0311 [Ibuprofen] 800 MG TAB, 800 MG PO Q8H PRN for FEVER >100.5 Prescribed by: BIGG RAJAN on 01/31/14 0953 Past Uoyilfh-Qeezqt-Geuuer Hx Patient Social History Tobacco Use?: Yes Tobacco type used: Cigarettes Substance use?: No Alcohol Use?: Yes Alcohol Frequency: Once in a while Immunizations Up To Date Tetanus Booster (TDap): Unknown PED Vaccines UTD: Yes Influenza Vaccine Up-to-Date: No; Not Current COVID19 Vaccine [employer] Ambassador: NO VAX Seasonal Allergies Seasonal Allergies: No Past Medical History Surgeries: Yes Vasectomy Respiratory: No Cardiac: No Neurological: No Genitourinary: No Gastrointestinal: No Musculoskeletal: No Endocrine: No HEENT: No Cancer: No Psychosocial: No Anxiety Integumentary: No Blood Disorders: No Family Medical History Patient reports no known family medical history. No Pertinent Family Hx Physical Exam Vital Signs Capillary Refill : Height, Weight, BMI Height: 5'9.00" Weight: 165lbs. 5.0oz. [id number]; 25.00 BMI Method:Stated Departure Impression Primary Impression: Swelling of hand Additional Impression: Insect sting Disposition: HOME, SELF-CARE Condition: Stable Departure-Patient Inst. Decision time for Depature: 20:42 Referrals: [facility] (PCP/Family) Primary Care Physician Patient Instructions: Swelling Add. Discharge Instructions: Plan: 1. Use Benadryl 25mg every 4-6 hours for redness and itching. 2. Use ice 20 minutes at a time for comfort and swelling. 3. Return for any new, concerning, or worsening symptoms. All discharge instructions reviewed with patient and/or family. Voiced understanding. Work/School Note: Work Release Form Date Seen in the Emergency Department: Jan 08, 2021 Return to Work: Jan 09, 2021 Restrictions: No Restrictions MARIELLA CARR [employer] H[employer]ER Jan 08, 2021 20:43
[2021-01-08] MEDS ORDERED: diphenhydrAMINE 50 MG/ML INJ (BENADRYL) IM ONE (20:45)
[2021-01-08 20:52] VITALS: BP 130/78
== END 2021-01-08 20:52 | disposition home or self-care (01) ==
LOC: EDUNIT# 19:42 → ER 19:44
DX: M79.89 Other specified soft tissue disorders (principal); W57.XXXA Bitten or stung by nonvenomous insect and other nonvenomous arthropods, initial encounter
CPT/HCPCS: 99284